=== PATIENT | female | born 1995 | race African-American/Black ===

== ENCOUNTER 2016-10-09 14:41 | Emergency (ER) | payer MEDICAID ==
[~2016-10-09] VITALS: Ht 157.5 cm; Wt 56.5 kg
[2016-10-09 14:42] VITALS: BP 107/69; PULSE 100; RESP 16; TEMP 98.7; O2SAT 99
== END 2016-10-09 15:40 | disposition left against medical advice (07) ==
LOC: NED 14:41
DX: Z04.9 Encounter for examination and observation for unspecified reason (principal)
CPT/HCPCS: 99281

== ENCOUNTER 2017-05-09 00:33 | Emergency (ER) | payer SELFPAY ==
[~2017-05-09] VITALS: Ht 160 cm; Wt 57.0 kg
[2017-05-09 00:36] VITALS: PULSE 94; RESP 20; TEMP 98.8; O2SAT 100
[2017-05-09 00:45] VITALS: BP 105/69; PULSE 86; RESP 20; TEMP 98.8; O2SAT 100
--- NOTE | 2017-05-09 01:09 | PD ---
HPI Chief Complaint: Cold / Flu Symptoms Time Seen by Provider: 01:08 Travel History International Travel<30 days: No Contact w/Intl Traveler<30days: No Traveled to known affect area: No History of Present Illness HPI 22-year-old female came to the emergency room with history of flulike symptoms. She says this has been going on for past 3 days. She has been coughing. Patient's vital signs were completely stable. She was afebrile in triage as well as repeat temperature. It was very hard to get history from the patient since she was extremely somnolent. [facility] Past Medical History Narrative Medical List of her past medical, surgical, social and family history is reviewed from the nursing note. Depression: Yes Diminished Hearing: No Gastrointestinal Disorders: No Immunizations Current: Yes ?: Unknown : 1 Miscarriage: 1 Past Surgical History Surgical History: No Previous Surgery Other Surgery: No Social History Alcohol Use: No Tobacco Use: No Substance Use: No Allergies-Medications (Allergen,Severity, Reaction): Coded Allergies: No Known Allergies (Verified Adverse Reaction, Unknown, 05/09/17) Comments No known drug allergies. Reported Meds & Prescriptions Reported Meds & Active Scripts Active No Active Prescriptions or Reported Medications Narrative Medication List of her home medications reviewed from the nursing note. Review of Systems Except as stated in HPI: all other systems reviewed are Neg Respiratory: Positive: Cough Physical Exam Narrative GENERAL: Somnolent, answers questions, no obvious distress SKIN: Focused skin assessment warm/dry. HEAD: Atraumatic. Normocephalic. EYES: Pupils equal and round. No scleral icterus. No injection or drainage. ENT: No nasal bleeding or discharge. Mucous membranes pink and moist. NECK: Trachea midline. No JVD. CARDIOVASCULAR: Regular rate and rhythm. No murmur appreciated. RESPIRATORY: No accessory muscle use. Clear to auscultation. Breath sounds equal bilaterally. GASTROINTESTINAL: Abdomen soft, non-tender, nondistended. Hepatic and splenic margins not palpable. MUSCULOSKELETAL: No obvious deformities. No clubbing. No cyanosis. No edema. NEUROLOGICAL: Awake and alert. No obvious cranial nerve deficits. Motor grossly within normal limits. Normal speech. PSYCHIATRIC: Appropriate mood and affect; insight and judgment normal. Data Data Last Documented VS Orders Orders Chest, Pa & Lat (05/09/17 ) Ed Urine Pregnancytest Poc (05/09/17 01:17) Ed Discharge Order (05/09/17 01:49) MDM Medical Decision Making Medical Screen Exam Complete: Yes Emergency Medical Condition: Yes Medical Record Reviewed: Yes Differential Diagnosis Pneumonia, bronchitis Narrative Course 1:30 AM patient's urine is negative. I've ordered a chest x-ray. If that's negative I will discharge her home. Procedures EKG Prior to Arrival: No Diagnosis Primary Impression: Cough Referrals: Primary Care Physician Scripts No Active Prescriptions or Reported Meds Disposition: 01 DISCHARGE HOME Condition: Stable Tom Caba MD May 09, 2017 01:09
--- NOTE | 2017-05-09 01:41 | RADRPT ---
EXAM DATE/TIME: 05/09/2017 01:28 [facility] COMPARISON: No previous studies available for comparison. INDICATIONS : Fever, cough. MEDICAL HISTORY : None. SURGICAL HISTORY : None. ENCOUNTER: Initial ACUITY: 3 days PAIN SCORE: 0/10 LOCATION: Bilateral chest FINDINGS: PA and lateral views of the chest demonstrate the lungs to be symmetrically aerated without evidence of mass, infiltrate or effusion. The cardiomediastinal contours are unremarkable. Osseous structure s are intact. CONCLUSION: Normal examination. Vu Gonzalez MD on May 09, 2017 at 1:39 Board Certified Radiologist. This report was verified electronically.
== END 2017-05-09 02:29 | disposition home or self-care (01) ==
LOC: NEPC 00:33
DX: R05 Cough (principal); F32.9 Major depressive disorder, single episode, unspecified
CPT/HCPCS: 71020; 84703; 99283

== ENCOUNTER 2017-06-19 17:23 | Emergency (ER) | payer SELFPAY ==
[2017-06-19 17:25] VITALS: BP 101/66; PULSE 112; RESP 12; TEMP 98.1; O2SAT 98
--- NOTE | 2017-06-19 19:27 | PD ---
HPI . STD exposure Chief Complaint: Gastroenterology Professor Problem/Complaint Time Seen by Provider: 17:59 Travel History International Travel<30 days: No Contact w/Intl Traveler<30days: No Traveled to known affect area: No History of Present Illness HPI This patient presents stating that her boyfriend was recently diagnosed with Trichomonas. She denies any symptoms related to the Trichomonas such as discharge. No pelvic pain. The patient also states that she was diagnosed with here on May 09. She states that she had an episode of vaginal bleeding compatible with a menstrual cycle approximately a week ago. She would like to know if she is . [facility] Past Medical History Medical History: Denies Significant Hx Depression: Yes Diminished Hearing: No Gastrointestinal Disorders: No Immunizations Current: Yes ?: LMP: currently unk weeks : 1 Miscarriage: 1 Past Surgical History Surgical History: No Previous Surgery Other Surgery: No Social History Alcohol Use: No Tobacco Use: No Substance Use: No Allergies-Medications (Allergen,Severity, Reaction): Coded Allergies: No Known Allergies (Verified Adverse Reaction, Unknown, 05/09/17) Reported Meds & Prescriptions Reported Meds & Active Scripts Active No Active Prescriptions or Reported Medications Review of Systems Except as stated in HPI: all other systems reviewed are Neg Genitourinary: No: Urgency, Frequency, Dysuria, Dyspareunia, Discharge, Vaginal Bleeding Physical Exam Narrative GENERAL: Awake and alert and in no distress. SKIN: warm/dry. HEAD: Normocephalic. EYES: Pupils equal and round. No scleral icterus. No injection or drainage. ENT: No nasal bleeding or discharge. Mucous membranes pink and moist. NECK: Trachea midline. Full range of motion without pain.. CARDIOVASCULAR: Regular rate and rhythm. RESPIRATORY: No accessory muscle use. Clear to auscultation. Breath sounds equal bilaterally. GASTROINTESTINAL: Abdomen soft. Nontender. Bowel sounds present. Nondistended. : She does have a frothy yellowish discharge in the vaginal vault. Os is closed. There is no cervical motion tenderness. No adnexal tenderness or masses. MUSCULOSKELETAL: No obvious deformities. NEUROLOGICAL: Awake and alert. No obvious cranial nerve deficits. Motor grossly within normal limits. Normal speech. PSYCHIATRIC: Appropriate mood and affect; insight and judgment normal. Data Data Last Documented VS Vital Signs Date Time Temp Pulse Resp B/P (MAP) Pulse Ox O2 Delivery O2 Flow Rate FiO2 12/26/17 17:25 98.1 112 12 101/66 (78) 98 Orders Orders Gc And Chlamydia Pcr (06/19/17 17:59) Wet Prep Profile (06/19/17 17:59) Ed Urine Pregnancytest Poc (06/19/17 17:59) Labs Laboratory Tests Test 06/19/17 18:40 Clue Cells (Wet Prep) NONE SEEN Vaginal Trichomonas (Wet Prep) NONE SEEN Vaginal Yeast (Wet Prep) NONE SEEN MDM Medical Decision Making Medical Screen Exam Complete: Yes Emergency Medical Condition: Yes Differential Diagnosis Differential diagnosis of vaginal discharge includes but is not limited to physiologic discharge, yeast infection, bacterial vaginosis, sexually transmitted disease. Narrative Course Patient presents stating that she's been exposed to Trichomonas. I will treat her presumptively for gonorrhea and Chlamydia as well as Trichomonas. The patient also states that she had a positive test in April but has subsequently had vaginal bleeding. test done here tonight is negative. Diagnosis Primary Impression: Trichomonal vaginitis Patient Instructions: General Instructions, Trichomoniasis (DC) Scripts No Active Prescriptions or Reported Meds Disposition: 01 DISCHARGE HOME Condition: Stable Shazia Emmanuel MD Jun 19, 2017 19:27
[2017-06-19] MEDS ORDERED: metroNIDAZOLE 500 MG TAB PO ONE (19:30)
[2017-06-19] MEDS ORDERED: LIDOCAINE HCL 1% 50 ML VIAL XX ONE (19:30)
[2017-06-19] MEDS ORDERED: cefTRIAXone 250 MG VIAL IM ONE (19:30)
[2017-06-19] MEDS ORDERED: AZITHROMYCIN 250 MG TAB PO ONE (19:30)
[2017-06-19] MEDS ORDERED: LIDOCAINE HCL 1% PF 2 ML VIAL OTHER ONE (20:00)
== END 2017-06-19 20:39 | disposition home or self-care (01) ==
LOC: NEPD 17:23
DX: A59.01 Trichomonal vulvovaginitis (principal)
CPT/HCPCS: 84703; 87210; 87491; 87591; 96372; 99284; J0696

== ENCOUNTER 2017-07-02 01:59 | Emergency (ER) | payer SELFPAY ==
[~2017-07-02] VITALS: Ht 160 cm; Wt 65.0 kg
[2017-07-02 02:00] VITALS: BP 115/73; PULSE 81; RESP 16; TEMP 98; O2SAT 99
[2017-07-02] MEDS ORDERED: SODIUM CHLORIDE 0.9% FLUSH 10 ML FLUSH IV FLUSH PRN (03:00)
[2017-07-02] MEDS ORDERED: SODIUM CHLORID 0.9% 500 ML INJ 500 ML IV ONE (03:00)
[2017-07-02 03:31] LABS: AUTOMATED NEUTROPHIL # 2.6 TH/MM3 (1.8-7.7); BASOPHIL % 0.5 % (0.0-2.0); EOSINOPHIL # 0.2 TH/MM3 (0-0.4); EOSINOPHIL % 3.1 % (0.0-4.0); HEMOGLOBIN 12.1 GM/DL (11.6-15.3); LYMPH % 48.1 % (9.0-44.0); LYMPHOCYTE # 3.1 TH/MM3 (1.0-4.8); MEAN CELL VOLUME 86.8 FL (80.0-100.0); MEAN CORPUSCULAR HEMOGLOBIN 29.1 PG (27.0-34.0); MEAN CORPUSCULAR HGB CONC 33.6 % (32.0-36.0); MEAN PLATELET VOLUME 6.9 FL (7.0-11.0); MONO % 8.4 % (0.0-8.0); MONOCYTE # 0.5 TH/MM3 (0-0.9); NEUT % 39.9 % (16.0-70.0); PLATELET COUNT 305 TH/MM3 (150-450); RED BLOOD COUNT 4.14 MIL/MM3 (4.00-5.30); RED CELL DISTRIBUTION WIDTH 13.8 % (11.6-17.2); WHITE BLOOD COUNT 6.5 TH/MM3 (4.0-11.0)
[2017-07-02 03:39] VITALS: RESP 16; O2SAT 99
[2017-07-02 03:47] LABS: BACTERIA, URINE RARE /hpf; BILIRUBIN, URINE NEG (NEG); BLOOD, URINE NEG (NEG); GLUCOSE,URINE NEG (NEG); KETONE, URINE NEG (NEG); MUCUS URINE FEW /lpf (OCC); NITRITE,URINE NEG (NEG); RENAL EPITHELIAL CELLS <1 /hpf; SQUAMOUS EPITHELIAL CELL URINE 5 /hpf (0-5); URINE COLOR YELLOW (YELLW/STRAW); URINE LEUKOCYTE ESTERASE MOD (NEG)
[2017-07-02 04:07] LABS: ALKALINE PHOSPHATASE 68 U/L (45-117); TOTAL BILIRUBIN ADULT 0.2 MG/DL (0.2-1.0); TOTAL PROTEIN 7.6 GM/DL (6.4-8.2)
[2017-07-02 04:23] LABS: ALBUMIN 3.5 GM/DL (3.4-5.0); ALT (GPT) 18 U/L (10-53); AST (GOT) 20 U/L (15-37); BLOOD UREA NITROGEN 19 MG/DL (7-18); CALCIUM 8.6 MG/DL (8.5-10.1); CHLORIDE 105 MEQ/L (98-107); CREATININE 0.73 MG/DL (0.50-1.00); GLOMERULAR FILTRATION RATE 121 ML/MIN (>89); GLUCOSE,RANDOM 82 MG/DL (74-106); LIPASE 130 U/L (73-393); SODIUM (NA) 139 MEQ/L (136-145)
[2017-07-02] MEDS ORDERED: KETOROLAC TROMETHAMINE 30 MG/ML (IVP) VIAL IV PUSH ONE (04:30)
--- NOTE | 2017-07-02 04:38 | PD ---
HPI Chief Complaint: Abdominal Pain Time Seen by Provider: 02:50 Travel History International Travel<30 days: No Contact w/Intl Traveler<30days: No Traveled to known affect area: No History of Present Illness HPI 22 year-old female presents to the emergency department for complaint of nausea noted upon awakening approximately 2 AM with one episode of diarrhea and generalized abdominal pain. Patient is concerned that she has gastroenteritis, viral syndrome or food poisoning. No report of dietary indiscretion well water ingestion or foreign travel. No reported fever or chills. Patient denies . Patient is not reporting dysuria frequency or urgency. No chest pain no shortness of breath no recent respiratory illness. Patient rates her pain 10 over 10 in intensity. Patient took no medications at home prior to arrival to the emergency department. Patient has history of depression takes no routine medications. PFSH Past Medical History Depression: Yes Cardiovascular Problems: No Diabetes: No Diminished Hearing: No Gastrointestinal Disorders: No Genitourinary: No Musculoskeletal: No Neurologic: No Respiratory: No Immunizations Current: Yes Sickle Cell Disease: No Tetanus Vaccination: < 5 Years Influenza Vaccination: Yes ?: Unknown LMP: 05/25/17 : 1 Miscarriage: 1 Past Surgical History Other Surgery: No Social History Alcohol Use: No Tobacco Use: No Substance Use: No Allergies-Medications (Allergen,Severity, Reaction): Coded Allergies: No Known Allergies (Verified Allergy, Unknown, 07/02/17) Reported Meds & Prescriptions Reported Meds & Active Scripts Active No Active Prescriptions or Reported Medications Review of Systems Except as stated in HPI: all other systems reviewed are Neg General / Constitutional: No: Fever, Chills HENT: No: Sore Throat, Congestion Cardiovascular: No: Chest Pain or Discomfort Respiratory: No: Shortness of Breath Gastrointestinal: Positive: Nausea, Diarrhea (x1), Abdominal Pain (generalized) , No: Vomiting, Hematemesis, Hematochezia, Dysphagia, Loss of Appetite Genitourinary: No: Urgency, Frequency, Dysuria Musculoskeletal: No: Myalgias, Arthralgias Skin: No Rash Neurologic: No: Weakness Psychiatric: No: Anxiety Hematologic/Lymphatic: No: Lymph Node Enlargement Physical Exam Narrative GENERAL: Well-developed well-nourished female in no acute distress no respiratory distress SKIN: Warm and dry. HEAD: Normocephalic. EYES: No scleral icterus. No injection or drainage. NECK: Supple, trachea midline. No JVD or lymphadenopathy. CARDIOVASCULAR: Regular rate and rhythm without murmurs, gallops, or rubs. RESPIRATORY: Breath sounds equal bilaterally. No accessory muscle use. GASTROINTESTINAL: Abdomen soft, non-tender, nondistended. MUSCULOSKELETAL: No cyanosis, or edema. BACK: Nontender without obvious deformity. No CVA tenderness. Data Data Last Documented VS Vital Signs Date Time Temp Pulse Resp B/P (MAP) Pulse Ox O2 Delivery O2 Flow Rate FiO2 07/02/17 03:39 16 99 Room Air 07/02/17 02:00 98.0 81 Orders Orders Complete Blood Count With Diff (07/02/17 02:50) Comprehensive Metabolic Panel (07/02/17 02:50) Lipase (07/02/17 02:50) Urinalysis - C+S If Indicated (07/02/17 02:50) Iv Access Insert/Monitor (07/02/17 02:50) Ecg Monitoring (07/02/17 02:50) Oximetry (07/02/17 02:50) Sodium Chloride 0.9% Flush (Ns Flush) (07/02/17 03:00) Ed Urine Pregnancytest Poc (07/02/17 02:50) Sodium Chlorid 0.9% 500 Ml Inj (Ns 500 M (07/02/17 03:00) Ketorolac Inj (Toradol Inj) (07/02/17 04:30) Labs Laboratory Tests Test 07/02/17 03:25 White Blood Count 6.5 TH/MM3 Red Blood Count 4.14 MIL/MM3 Hemoglobin 12.1 GM/DL Hematocrit 36.0 % Mean Corpuscular Volume 86.8 FL Mean Corpuscular Hemoglobin 29.1 PG Mean Corpuscular Hemoglobin Concent 33.6 % Red Cell Distribution Width 13.8 % Platelet Count 305 TH/MM3 Mean Platelet Volume 6.9 FL Neutrophils (%) (Auto) 39.9 % Lymphocytes (%) (Auto) 48.1 % Monocytes (%) (Auto) 8.4 % Eosinophils (%) (Auto) 3.1 % Basophils (%) (Auto) 0.5 % Neutrophils # (Auto) 2.6 TH/MM3 Lymphocytes # (Auto) 3.1 TH/MM3 Monocytes # (Auto) 0.5 TH/MM3 Eosinophils # (Auto) 0.2 TH/MM3 Basophils # (Auto) 0.0 TH/MM3 CBC Comment DIFF FINAL Differential Comment Urine Color YELLOW Urine Turbidity CLEAR Urine pH 6.0 Urine Specific [place] 1.030 Urine Protein TRACE mg/dL Urine Glucose (UA) NEG mg/dL Urine Ketones NEG mg/dL Urine Occult Blood NEG Urine Nitrite NEG Urine Bilirubin NEG Urine Urobilinogen LESS THAN 2.0 MG/DL Urine Leukocyte Esterase MOD Urine RBC 1 /hpf Urine WBC 5 /hpf Urine Squamous Epithelial Cells 5 /hpf Urine Renal Epithelial Cells <1 /hpf Urine Bacteria RARE /hpf Urine Mucus FEW /lpf Microscopic Urinalysis Comment CULT NOT INDICATED Blood Urea Nitrogen 19 MG/DL Creatinine 0.73 MG/DL Random Glucose 82 MG/DL Total Protein 7.6 GM/DL Albumin 3.5 GM/DL Calcium Level 8.6 MG/DL Alkaline Phosphatase 68 U/L Aspartate Amino Transf (AST/SGOT) 20 U/L Alanine Aminotransferase (ALT/SGPT) 18 U/L Total Bilirubin 0.2 MG/DL Sodium Level 139 MEQ/L Potassium Level 4.3 MEQ/L Chloride Level 105 MEQ/L Carbon Dioxide Level 29.0 MEQ/L Anion Gap 5 MEQ/L Estimat Glomerular Filtration Rate 121 ML/MIN Lipase 130 U/L [facility] Medical Decision Making Medical Screen Exam Complete: Yes Emergency Medical Condition: Yes Medical Record Reviewed: Yes Interpretation(s) CBC & BMP Diagram 07/02/17 03:25 Total Protein 7.6, Albumin 3.5, Calcium Level 8.6, Alkaline Phosphatase 68, Aspartate Amino Transf (AST/SGOT) 20, Alanine Aminotransferase (ALT/SGPT) 18, Total Bilirubin 0.2 Vital Signs Date Time Temp Pulse Resp B/P (MAP) Pulse Ox O2 Delivery O2 Flow Rate FiO2 07/02/17 03:39 16 99 Room Air 07/02/17 02:00 98.0 81 16 115/73 (87) 99 Room Air [id number] hCG: Negative Urinalysis: Leukocyte Estrace rare bacteria Differential Diagnosis Nausea, viral syndrome, gastroenteritis, intestinal colic, UTI, ; unlikely colitis appendicitis ruptured ovarian cyst ovarian torsion or ectopic Narrative Course 22-year-old female with one hour of abdominal discomfort and nausea and episode of diarrhea; [id number] hCG is negative specimens collected for resulting patient given a 500 cc bolus of normal saline Patient rates pain 10 over 10 intensity [id number] hCG is negative patient given a one-time dose of Toradol 30 mg IV Laboratory values resulted, no acute abnormality identified; patient is stable for outpatient management Diagnosis Primary Impression: Abdominal pain Qualified Codes: R10.84 - Generalized abdominal pain Referrals: Primary Care Physician as needed Patient Instructions: General Instructions Additional Instructions: Increase fluid hydration Follow-up with primary care provider Follow-up with her diet for next 12-24 hours advance as hard bland/David diet then regular diet May use [id number] antacids or Phazyme Basic acetaminophen/Tylenol as needed for fever 100.4F or greater or for minor pain May use ibuprofen/Advil/Motrin per package instructions as needed for pain associated with inflammation or fever 100.4F or greater Med/Other Pt SpecificInfo: No Meds Exist/No RX given Scripts No Active Prescriptions or Reported Meds Disposition: 01 DISCHARGE HOME Condition: Stable Racquel Rich MD Jul 02, 2017 04:38
== END 2017-07-02 04:49 | disposition home or self-care (01) ==
LOC: NEPC 01:59
DX: R10.84 Generalized abdominal pain (principal); R11.0 Nausea; R19.7 Diarrhea, unspecified; F32.9 Major depressive disorder, single episode, unspecified
CPT/HCPCS: 80053; 81001; 83690; 84703; 85025; 96361; 96374; 99284; J1885; J7040

== ENCOUNTER 2017-07-05 13:45 | Emergency (ER) | payer SELFPAY ==
[~2017-07-05] VITALS: Ht 160 cm; Wt 63.5 kg
[2017-07-05 13:46] VITALS: BP 113/74; PULSE 107; RESP 18; TEMP 99; O2SAT 97
[2017-07-05] MEDS ORDERED: SODIUM CHLOR 0.9% 1000 ML INJ 1,000 ML IV SCH (14:33)
--- NOTE | 2017-07-05 14:37 | PD ---
HPI Chief Complaint: Cold / Flu Symptoms Time Seen by Provider: 14:28 Travel History International Travel<30 days: No Contact w/Intl Traveler<30days: No Traveled to known affect area: No History of Present Illness HPI This is a 22-year-old female who presents for evaluation of abdominal pain, nausea and vomiting. She reports over the past 3 days she has had generalized abdominal pain, nausea, 2-3 episodes of emesis on a daily basis. She reports approximately 2 episodes of watery stool a daily basis as well has some dental pain for the past several days. She reports that today her emesis was blood tinged. She describes the abdominal pain as sharp, generalized, no aggravating or alleviating factors. Denies any dietary changes, dysuria, flank pain, fevers or chills, vaginal bleeding or discharge. Last menstrual period unknown. She was seen at [facility] on July 02 for similar symptoms. She had lab work which was essentially unremarkable. Symptoms have worsened since then. No other complaints. [facility] Past Medical History Asthma: Yes Depression: Yes Cardiovascular Problems: No Diabetes: No Diminished Hearing: No Gastrointestinal Disorders: No Genitourinary: No Musculoskeletal: No Neurologic: No Respiratory: No Immunizations Current: Yes Sickle Cell Disease: No ?: Unknown LMP: last week of April : 1 Miscarriage: 1 Past Surgical History Surgical History: No Previous Surgery Other Surgery: No Social History Alcohol Use: No Tobacco Use: No Substance Use: No Allergies-Medications (Allergen,Severity, Reaction): Coded Allergies: No Known Allergies (Verified Allergy, Unknown, 07/05/17) Reported Meds & Prescriptions Reported Meds & Active Scripts Active Zofran (Ondansetron HCl) 4 Mg Tab 4 Mg PO Q6HR PRN Colace (Docusate Sodium) 100 Mg Capsule 1 Tab PO BID 7 Days Review of Systems Except as stated in HPI: all other systems reviewed are Neg Physical Exam Narrative GENERAL: Well-developed well-nourished female in no acute distress SKIN: Warm and dry. HEAD: Atraumatic. Normocephalic. EYES: Pupils equal and round. No scleral icterus. No injection or drainage. ENT: No nasal bleeding or discharge. Mucous membranes pink and moist. There is some dental decay to the left maxillary first molar. NECK: Trachea midline. No JVD. CARDIOVASCULAR: Regular rate and rhythm. No murmur appreciated. RESPIRATORY: No accessory muscle use. Clear to auscultation. Breath sounds equal bilaterally. GASTROINTESTINAL: Abdomen soft, generalized nonfocal tenderness to palpation without guarding. No CVA tenderness. MUSCULOSKELETAL: No obvious deformities. No clubbing. No cyanosis. No edema. NEUROLOGICAL: Awake and alert. No obvious cranial nerve deficits. Motor grossly within normal limits. Normal speech. PSYCHIATRIC: Appropriate mood and affect; insight and judgment normal. Data Data Last Documented VS Vital Signs Date Time Temp Pulse Resp B/P (MAP) Pulse Ox O2 Delivery O2 Flow Rate FiO2 07/05/17 13:46 99.0 107 18 113/74 (87) 97 Room Air Orders Orders Complete Blood Count With Diff (07/05/17 14:02) Comprehensive Metabolic Panel (07/05/17 14:02) Urinalysis - C+S If Indicated (07/05/17 14:02) Lipase (07/05/17 14:02) Ed Urine Pregnancytest Poc (07/05/17 14:02) Ct Abd/Pel W Iv Contrast(Rout) (07/05/17 14:33) Iv Access Insert/Monitor (07/05/17 14:33) Ondansetron Inj (Zofran Inj) (07/05/17 14:45) Sodium Chlor 0.9% 1000 Ml Inj (Ns 1000 M (07/05/17 14:33) Iohexol 350 Inj (Omnipaque 350 Inj) (07/05/17 15:41) Labs Laboratory Tests Test 07/05/17 14:38 White Blood Count 6.7 TH/MM3 Red Blood Count 3.91 MIL/MM3 Hemoglobin 11.5 GM/DL Hematocrit 33.9 % Mean Corpuscular Volume 86.8 FL Mean Corpuscular Hemoglobin 29.3 PG Mean Corpuscular Hemoglobin Concent 33.8 % Red Cell Distribution Width 13.5 % Platelet Count 284 TH/MM3 Mean Platelet Volume 6.9 FL Neutrophils (%) (Auto) 44.9 % Lymphocytes (%) (Auto) 40.7 % Monocytes (%) (Auto) 8.7 % Eosinophils (%) (Auto) 5.1 % Basophils (%) (Auto) 0.6 % Neutrophils # (Auto) 3.0 TH/MM3 Lymphocytes # (Auto) 2.7 TH/MM3 Monocytes # (Auto) 0.6 TH/MM3 Eosinophils # (Auto) 0.3 TH/MM3 Basophils # (Auto) 0.0 TH/MM3 CBC Comment DIFF FINAL Differential Comment Urine Color YELLOW Urine Turbidity CLEAR Urine pH 6.0 Urine Specific [place] 1.022 Urine Protein NEG mg/dL Urine Glucose (UA) NEG mg/dL Urine Ketones NEG mg/dL Urine Occult Blood NEG Urine Nitrite NEG Urine Bilirubin NEG Urine Urobilinogen 2.0 MG/DL Urine Leukocyte Esterase MOD Urine RBC LESS THAN 1 /hpf Urine WBC 1 /hpf Urine Squamous Epithelial Cells 7 /hpf Microscopic Urinalysis Comment CULT NOT INDICATED Blood Urea Nitrogen 18 MG/DL Creatinine 0.80 MG/DL Random Glucose 61 MG/DL Total Protein 7.7 GM/DL Albumin 3.7 GM/DL Calcium Level 9.0 MG/DL Alkaline Phosphatase 66 U/L Aspartate Amino Transf (AST/SGOT) 21 U/L Alanine Aminotransferase (ALT/SGPT) 18 U/L Total Bilirubin 0.1 MG/DL Sodium Level 136 MEQ/L Potassium Level 4.3 MEQ/L Chloride Level 102 MEQ/L Carbon Dioxide Level 29.3 MEQ/L Anion Gap 5 MEQ/L Estimat Glomerular Filtration Rate 109 ML/MIN Lipase 98 U/L [facility] Medical Decision Making Medical Screen Exam Complete: Yes Emergency Medical Condition: Yes Medical Record Reviewed: Yes Differential Diagnosis Gastroenteritis, obstruction, colitis, gastritis, appendicitis, pancreatitis Narrative Course 22-year-old female with generalized nonspecific abdominal pain, nausea, vomiting , diarrhea over the past few days. On examination she has diffuse mild tenderness to palpation in the abdomen. Plans for basic lab work, CT abdomen and pelvis. She was given IV fluids and Zofran. Her lab work reveals a glucose of 61, otherwise essentially unremarkable. CONCLUSION: 1. Moderate amount of stool throughout the colon which could indicate constipation. 2. Nonspecific, nonobstructive bowel gas pattern. Visualization is suboptimal secondary to the lack of contrast, motion artifact and limited mesenteric fat. Subtle pathology could be obscured. The patient feels improved upon reexamination. She'll be discharged with a short course of Zofran and Colace. Diagnosis Primary Impression: Abdominal pain Additional Impression: Constipation Additional Instructions: Medication as prescribed. Advance diet as tolerated. Follow-up with primary care physician and return for any acutely new or worsening symptoms. Med/Other Pt SpecificInfo: Prescription(s) given Scripts Ondansetron (Zofran) 4 Mg Tab 4 MG PO Q6HR Y for NAUSEA OR VOMITING, #20 TAB 0 Refills Prov: Ousmane Ni MD 07/05/17 Docusate Sodium (Colace) 100 Mg Capsule 1 TAB PO BID for 7 Days Prov: Ousmane Ni MD 07/05/17 Disposition: 01 DISCHARGE HOME Condition: Stable Soren Freire Jul 05, 2017 14:37
[2017-07-05] MEDS ORDERED: ONDANSETRON HCL 4 MG/2 ML VIAL IVP ONE (14:45)
[2017-07-05 15:19] LABS: BASOPHIL % 0.6 % (0.0-2.0); EOSINOPHIL # 0.3 TH/MM3 (0-0.4); EOSINOPHIL % 5.1 % (0.0-4.0); HEMATOCRIT 33.9 % (35.0-46.0); HEMOGLOBIN 11.5 GM/DL (11.6-15.3); LYMPH % 40.7 % (9.0-44.0); LYMPHOCYTE # 2.7 TH/MM3 (1.0-4.8); MEAN CELL VOLUME 86.8 FL (80.0-100.0); MEAN CORPUSCULAR HEMOGLOBIN 29.3 PG (27.0-34.0); MEAN CORPUSCULAR HGB CONC 33.8 % (32.0-36.0); MEAN PLATELET VOLUME 6.9 FL (7.0-11.0); MONO % 8.7 % (0.0-8.0); MONOCYTE # 0.6 TH/MM3 (0-0.9); NEUT % 44.9 % (16.0-70.0); PLATELET COUNT 284 TH/MM3 (150-450); RED BLOOD COUNT 3.91 MIL/MM3 (4.00-5.30); RED CELL DISTRIBUTION WIDTH 13.5 % (11.6-17.2); WHITE BLOOD COUNT 6.7 TH/MM3 (4.0-11.0)
[2017-07-05 15:22] LABS: BILIRUBIN, URINE NEG (NEG); BLOOD, URINE NEG (NEG); GLUCOSE,URINE NEG (NEG); KETONE, URINE NEG (NEG); NITRITE,URINE NEG (NEG); SQUAMOUS EPITHELIAL CELL URINE 7 /hpf (0-5); URINE COLOR YELLOW (YELLW/STRAW); URINE LEUKOCYTE ESTERASE MOD (NEG)
[2017-07-05 15:36] LABS: ALKALINE PHOSPHATASE 66 U/L (45-117); TOTAL BILIRUBIN ADULT 0.1 MG/DL (0.2-1.0); TOTAL PROTEIN 7.7 GM/DL (6.4-8.2)
[2017-07-05 15:41] LABS: ALBUMIN 3.7 GM/DL (3.4-5.0); ALT (GPT) 18 U/L (10-53); AST (GOT) 21 U/L (15-37); BICARBONATE 29.3 MEQ/L (21.0-32.0); BLOOD UREA NITROGEN 18 MG/DL (7-18); CHLORIDE 102 MEQ/L (98-107); GLOMERULAR FILTRATION RATE 109 ML/MIN (>89); GLUCOSE,RANDOM 61 MG/DL (74-106); LIPASE 98 U/L (73-393); SODIUM (NA) 136 MEQ/L (136-145)
[2017-07-05] MEDS ORDERED: IOHEXOL 350 MG/ML 10 ML VIAL (for RAD DIAG) IVCONTRAST ONE (15:41)
--- NOTE | 2017-07-05 15:51 | RADRPT ---
EXAM DATE/TIME: 07/05/2017 15:35 [facility] COMPARISON: No previous studies available for comparison. INDICATIONS : Abdominal pain, vomiting IV CONTRAST: 75 cc Omnipaque 350 (iohexol) IV ORAL CONTRAST: No oral contrast ingested. RADIATION DOSE: 4.51 CTDIvol (mGy) MEDICAL HISTORY : None SURGICAL HISTORY : None. ENCOUNTER: Initial ACUITY: 2 days PAIN SCALE: 5/10 LOCATION: Abdomen TECHNIQUE: Volumetric scanning of the abdomen and pelvis was performed. Using automated exposure control and ad justment of the mA and/or kV according to patient size, radiation dose was kept as low as reasonably achievable to obtain optimal diagnostic quality images. DICOM format image data is available electro nically for review and comparison. FINDINGS: LOWER LUNGS: The visualized lower lungs are clear. LIVER: Homogeneous density without lesion. There is no dilation of the biliary tree. No calcified gallston es. SPLEEN: Normal size without lesion. PANCREAS: Within normal limits. KIDNEYS: Normal in size and shape. There is no mass, stone or hydronephrosis. ADRENAL GLANDS: Within normal limits. VASCULAR: There is no aortic aneurysm. BOWEL/MESENTERY: No oral contrast was given limiting the sensitivity of the exam. There is poor delineation of the bow el loops secondary to motion artifact, lock of contrast and small amount of mesenteric fat. There is a moderate amount of stool throughout the colon which could indicate constipation. There are multiple loops of nondilated air-containing small bowel present. There are several small air-fluid levels. Th ere is no definite free air or fluid identified. ABDOMINAL WALL: Within normal limits. RETROPERITONEUM: There is no lymphadenopathy. BLADDER: No wall thickening or mass. REPRODUCTIVE: Within normal limits. INGUINAL: There is no lymphadenopathy or hernia. MUSCULOSKELETAL: Within normal limits for patient age. CONCLUSION: 1. Moderate amount of stool throughout the colon which could indicate constipation. 2. Nonspecific, nonobstructive bowel gas pattern. Visualization is suboptimal secondary to the lack o f contrast, motion artifact and limited mesenteric fat. Subtle pathology could be obscured. Obinna Summers MD on July 05, 2017 at 15:46 Board Certified Radiologist. This report was verified electronically.
[2017-07-05] MEDS ORDERED: ZOFR4TAB PO (16:00)
[2017-07-05] MEDS ORDERED: COLA100C5 PO (16:00)
== END 2017-07-05 21:07 | disposition home or self-care (01) ==
LOC: NEPD 13:45
DX: K59.00 Constipation, unspecified (principal); F32.9 Major depressive disorder, single episode, unspecified; J45.909 Unspecified asthma, uncomplicated
CPT/HCPCS: 74177; 80053; 81001; 83690; 84703; 85025; 96374; 99285; J2405; J7030; Q9967

== ENCOUNTER 2017-07-16 16:04 | Emergency (ER) | payer SELFPAY ==
[2017-07-16 17:34] LABS: AUTOMATED NEUTROPHIL # 3.2 TH/MM3 (1.8-7.7); BASOPHIL % 0.4 % (0.0-2.0); EOSINOPHIL # 0.3 TH/MM3 (0-0.4); HEMATOCRIT 34.6 % (35.0-46.0); HEMO FLAGS DIFF FINAL; HEMOGLOBIN 11.7 GM/DL (11.6-15.3); LYMPH % 30.9 % (9.0-44.0); LYMPHOCYTE # 1.7 TH/MM3 (1.0-4.8); MEAN CELL VOLUME 87.1 FL (80.0-100.0); MEAN CORPUSCULAR HEMOGLOBIN 29.5 PG (27.0-34.0); MEAN CORPUSCULAR HGB CONC 33.8 % (32.0-36.0); MEAN PLATELET VOLUME 6.8 FL (7.0-11.0); MONOCYTE # 0.3 TH/MM3 (0-0.9); NEUT % 58.7 % (16.0-70.0); PLATELET COUNT 322 TH/MM3 (150-450); RED BLOOD COUNT 3.97 MIL/MM3 (4.00-5.30); WHITE BLOOD COUNT 5.5 TH/MM3 (4.0-11.0)
[2017-07-16 17:37] LABS: BACTERIA, URINE OCC /hpf; BILIRUBIN, URINE NEG (NEG); BLOOD, URINE NEG (NEG); COMMENT (UR) CULT NOT INDICATED; CULTURE IF INDICATED CULT NOT INDICATED; GLUCOSE,URINE NEG (NEG); KETONE, URINE NEG (NEG); MUCUS URINE FEW /lpf (OCC); NITRITE,URINE NEG (NEG); PH, URINE 7.5 (5.0-8.5); SQUAMOUS EPITHELIAL CELL URINE 5 /hpf (0-5); URINE COLOR LIGHT-YELLOW (YELLW/STRAW); URINE LEUKOCYTE ESTERASE MOD (NEG)
[2017-07-16 18:03] LABS: ALBUMIN 3.6 GM/DL (3.4-5.0); ANION GAP 4 MEQ/L (5-15); AST (GOT) 21 U/L (15-37); BICARBONATE 27.7 MEQ/L (21.0-32.0); BLOOD UREA NITROGEN 11 MG/DL (7-18); CALCIUM 8.9 MG/DL (8.5-10.1); CHLORIDE 107 MEQ/L (98-107); CREATININE 0.68 MG/DL (0.50-1.00); GLOMERULAR FILTRATION RATE 131 ML/MIN (>89); GLUCOSE,RANDOM 64 MG/DL (74-106); SODIUM (NA) 139 MEQ/L (136-145)
[2017-07-16 18:05] LABS: ALT (GPT) 21 U/L (10-53)
[2017-07-16 18:08] LABS: ALKALINE PHOSPHATASE 69 U/L (45-117); BETA HCG QUANT LESS THAN 1 MIU/ML (0-5); TOTAL BILIRUBIN ADULT 0.2 MG/DL (0.2-1.0); TOTAL PROTEIN 7.5 GM/DL (6.4-8.2)
[2017-07-17 01:15] LABS: CHLAMYDIA PCR NOT DETECTED (NOT DETECT); NEISSERIA PCR NOT DETECTED (NOT DETECT)
== END 2017-07-16 20:30 | disposition home or self-care (01) ==
LOC: NEPD 16:04
DX: N89.8 Other specified noninflammatory disorders of vagina (principal); R11.0 Nausea
CPT/HCPCS: 80053; 81001; 84702; 84703; 85025; 86901; 87210; 87491; 87591; 99283

== ENCOUNTER 2017-12-10 18:53 | Emergency (ER) | payer SELFPAY ==
[~2017-12-10] VITALS: Ht 160 cm; Wt 55.0 kg
[~2017-12-10 18:53] MED LIST: COLA100C5 PO; ZOFR4TAB PO
[2017-12-10 19:15] VITALS: BP 97/53; PULSE 74; RESP 18; TEMP 97.6; O2SAT 99
[2017-12-10] MEDS ORDERED: OFLO0.3D9 RIGHT EAR (20:48)
--- NOTE | 2017-12-10 20:52 | PD ---
HPI Chief Complaint: ENT Complaint Time Seen by Provider: 20:30 Travel History International Travel<30 days: No Contact w/Intl Traveler<30days: No Traveled to known affect area: No History of Present Illness HPI 22-year-old female presents to the emergency room for evaluation of right ear pain that started last night. Pain is constant and significant. She has not taken anything or done anything for symptoms. She is associated decreased hearing. She has not been swimming in any body of water lately. Denies any drainage fever, chills, nausea, vomiting, cough, congestion, or sore throat. No chronic medical conditions or daily medications. PFSH Past Medical History Asthma: Yes Depression: Yes Cardiovascular Problems: No Diabetes: No Diminished Hearing: No Gastrointestinal Disorders: No Genitourinary: No Musculoskeletal: No Neurologic: No Respiratory: No Immunizations Current: Yes Sickle Cell Disease: No : 1 Miscarriage: 1 Past Surgical History Other Surgery: No Social History Alcohol Use: No Tobacco Use: No Substance Use: No Allergies-Medications (Allergen,Severity, Reaction): Coded Allergies: No Known Allergies (Verified Allergy, Unknown, 12/10/17) Reported Meds & Prescriptions Reported Meds & Active Scripts Active Zofran (Ondansetron HCl) 4 Mg Tab 4 Mg PO Q6HR PRN Colace (Docusate Sodium) 100 Mg Capsule 1 Tab PO BID 7 Days Review of Systems Except as stated in HPI: all other systems reviewed are Neg Physical Exam Narrative GENERAL: Well-nourished, well-developed female in no acute distress. Afebrile. Ambulatory. SKIN: Focused skin assessment warm/dry. HEAD: Normocephalic. EYES: No scleral icterus. No injection or drainage. NECK: Supple, trachea midline. No JVD or lymphadenopathy. EARS: Bilateral pinnae appear within normal limits. Bilateral tympanic membranes without erythema, dullness or perforation. Left ear canal has significant cerumen. Right ear canal has moderate, purulent drainage in the ear canal and coming out of the external auditory canal. Pain with insertion of the otoscope. CARDIOVASCULAR: Regular rate and rhythm without murmurs, gallops, or rubs. RESPIRATORY: Breath sounds equal bilaterally. No accessory muscle use. Data Data Last Documented VS Vital Signs Date Time Temp Pulse Resp B/P (MAP) Pulse Ox O2 Delivery O2 Flow Rate FiO2 12/10/17 19:15 97.6 74 18 97/53 (62) 60 [facility] Medical Decision Making Medical Screen Exam Complete: Yes Emergency Medical Condition: Yes Medical Record Reviewed: Yes Differential Diagnosis Otitis externa, otitis media, eustachian tube dysfunction Narrative Course 22-year-old female presents to the emergency room for evaluation of right ear pain for the past day. No associated symptoms. Physical exam reveals right ear canal has moderate, purulent drainage in the ear canal and coming out of the external auditory canal. Pain with insertion of the otoscope. This is otitis externa. Patient discharged with prescription for ofloxacin and told to follow-up with a primary care physician or return for worsening symptoms. She understands and agrees to plan. Diagnosis Primary Impression: Right otitis externa Referrals: Primary Care Physician Additional Instructions: Rest and drink plenty of fluids. Ofloxacin as directed for 7 days. Take ibuprofen with food as directed, as needed for pain. Follow-up with a primary care physician. Return to the emergency room for worsening symptoms. Scripts Ofloxacin Otic Drops (Ofloxacin Otic Drops) 0.3 % Drops 10 DROP RIGHT EAR DAILY for Infection, #1 BOTTLE 0 Refills Prov: Dia Brown MD 12/10/17 Disposition: 01 DISCHARGE HOME Condition: Stable Mary Beth Vallejo Dec 10, 2017 20:52
== END 2017-12-10 21:05 | disposition home or self-care (01) ==
LOC: NEPK 18:53
DX: H60.91 Unspecified otitis externa, right ear (principal); J45.909 Unspecified asthma, uncomplicated; F32.9 Major depressive disorder, single episode, unspecified; Z79.899 Other long term (current) drug therapy
CPT/HCPCS: 99283